=== PATIENT | female | born 1970 | race Caucasian/White ===

== ENCOUNTER 2022-03-29 10:20 | Outpatient (CLI) | payer BC | END 2022-03-29 10:21 | disposition home or self-care (01) | LOC: CSHMAMMO 10:20 | PROVIDERS: ATTEND Family Medicine Sports Medicine | DX: Z12.31 Encounter for screening mammogram for malignant neoplasm of breast (principal) | CPT/HCPCS: 77063; 77067 ==

== ENCOUNTER 2022-06-10 17:45 | Observation (INO) | payer BC ==
[2022-06-10 18:53] LABS: #Basophils 0.1 10x3/uL (0.0-0.2); #Eosinphils 0.1 10x3/uL (0.0-0.5); #Monocytes 0.7 10x3/uL (0.0-1.1); %Basophils 0.7 % (0.0-2.0); %Eosinophils 0.5 % (0.0-6.0); %Lymphocytes 19.7 % (18.0-47.0); %Monocytes 6.6 % (0.0-10.0); %Neutrophils 71.8 % (40.0-75.0); Hemoglobin 14.5 g/dL (12.0-15.5); Mean Corpuscular HGB CONC 35.5 g/dL (32.0-36.0); Mean Corpuscular Volume 87.6 fl (81.6-98.3); Mean Platelet Volume 9.6 fl (7.4-10.4); Platelet Count 229 10x3/uL (150-450); RBC Distribution Width 12.4 % (11.5-14.5); Red Blood Cell (RBC) Count 4.67 10x6/uL (3.90-5.03); White Blood Cell (WBC) Count 11.2 10x3/uL (3.5-10.5)
[2022-06-10 19:03] LABS: ALT (SGPT) 42 U/L (8-55); AST (SGOT) 36 U/L (5-34); Albumin 4.4 g/dL (3.5-5.0); Alkaline Phosphatase 54 U/L (40-110); Anion Gap 16 mmol/L (10-20); BUN (Urea Nitrogen) 13 mg/dL (9.8-20.1); Bilirubin, Total 0.4 mg/dL (0.2-1.2); Calc. Creatinine Clearance 0 mL/min (70-130); Calcium 9.8 mg/dL (7.8-10.44); Carbon Dioxide 21 mmol/L (22-29); Chloride 104 mmol/L (98-107); Estimated GFR 82; Globulin 2.8 g/dL (2.4-3.5); Glucose 107 mg/dL (70-105); Potassium 3.7 mmol/L (3.5-5.1); Protein, Total 7.2 g/dL (6.0-8.3); Sodium 137 mmol/L (136-145)
[2022-06-10] MEDS ORDERED: Aspirin 325 MG TAB ONE (19:19)
[2022-06-10] MEDS ORDERED: Nitroglycerin 2% Ointment 1 INCH/1 GM Packet ONE (19:19)
[2022-06-10] MEDS ORDERED: Acetaminophen 325 MG TAB PO PRN (20:01)
[2022-06-10] MEDS ORDERED: Senokot S 8.6-50 MG TAB PO PRN (20:01)
[2022-06-10] MEDS ORDERED: Calcium Carbonate 500 MG ChewTAB PO PRN (20:01)
[2022-06-10] MEDS ORDERED: Ondansetron PF 4 MG/2 ML Vial IVP PRN (20:01)
[2022-06-10] MEDS ORDERED: Zolpidem Tartrate 5 MG TAB PO PRN (20:01)
[2022-06-10] MEDS ORDERED: Guaifenesin DM 100-10/5 ML UDCUP PO PRN (20:01)
[2022-06-10] MEDS ORDERED: traMADol HCl 50 MG TAB PO PRN (20:02)
[2022-06-10] MEDS ORDERED: Nitroglycerin 0.4 MG TAB (25 Tab Bottle) SL PRN (20:03)
[2022-06-10] MEDS ORDERED: Albuterol Sulfate 2.5 mg/3 ml Neb NEB PRN (20:05)
[2022-06-10] MEDS ORDERED: Potassium Chloride 20 MEQ TAB PO SCH (20:15)
[2022-06-10] MEDS ORDERED: Lisinopril 10 MG TAB PO SCH (20:15)
[2022-06-10] MEDS ORDERED: traMADol HCl 50 MG TAB PO SCH (20:30)
[2022-06-10] MEDS ORDERED: Lidocaine 2% Viscous Solution 10 ML, Aluminum & Magnesium Hydroxide 30 ML SSW SCH (20:30)
[2022-06-10 20:44] VITALS: BMI 29.7
[2022-06-10] MEDS ORDERED: Montelukast Sodium 10 mg Tablet PO SCH (21:00)
[2022-06-11 05:04] LABS: ALT (SGPT) 36 U/L (8-55); AST (SGOT) 36 U/L (5-34); Albumin 3.9 g/dL (3.5-5.0); Alkaline Phosphatase 46 U/L (40-110); Anion Gap 13 mmol/L (10-20); BUN (Urea Nitrogen) 13 mg/dL (9.8-20.1); Bilirubin, Total 0.5 mg/dL (0.2-1.2); Calc. Creatinine Clearance 112 mL/min (70-130); Calcium 9.5 mg/dL (7.8-10.44); Carbon Dioxide 23 mmol/L (22-29); Chloride 107 mmol/L (98-107); Estimated GFR 88; Glucose 99 mg/dL (70-105); Potassium 4.6 mmol/L (3.5-5.1); Protein, Total 6.9 g/dL (6.0-8.3); Sodium 138 mmol/L (136-145)
[2022-06-11] MEDS ORDERED: Lisinopril 10 MG TAB PO SCH (09:00)
[2022-06-11] MEDS ORDERED: Hydrochlorothiazide 25 MG TAB PO SCH (09:00)
[2022-06-11] MEDS ORDERED: Amlodipine 5 MG TAB PO SCH (09:00)
[2022-06-11 11:57] VITALS: BP 138/80; TEMP 98.3
== END 2022-06-11 14:54 | disposition home or self-care (01) ==
LOC: CSHERS 17:45 → CSHTELE 20:33
PROVIDERS: ADMIT Student in an Organized Health Care Education/Training Program; ATTEND Family Medicine
DX: R07.89 Other chest pain (principal); I20.1 Angina pectoris with documented spasm; I16.0 Hypertensive urgency; I10 Essential (primary) hypertension; E78.1 Pure hyperglyceridemia; J45.20 Mild intermittent asthma, uncomplicated; R73.9 Hyperglycemia, unspecified; Z20.822 Contact with and (suspected) exposure to COVID-19; Z79.899 Other long term (current) drug therapy; Z88.5 Allergy status to narcotic agent; Z88.8 Allergy status to other drugs, medicaments and biological substances; Z91.040 Latex allergy status
CPT/HCPCS: 71045; 80053; 83880; 84443; 84484; 85025; 93005; G0378; U0003; U0005

== ENCOUNTER 2024-08-15 10:20 | Outpatient (CLI) | payer BC | END 2024-08-15 10:21 | disposition home or self-care (01) | LOC: CSHMAMMO 10:20 | PROVIDERS: ATTEND Family Medicine Sports Medicine | DX: Z12.31 Encounter for screening mammogram for malignant neoplasm of breast (principal) | CPT/HCPCS: 77063; 77067 ==

== ENCOUNTER 2025-07-09 12:06 | Inpatient (IN) | payer BC ==
[~2025-07-09 12:06] MED LIST: Iopamidol 300 61% 100 ML VIAL FS ONE
[2025-07-09 12:59] LABS: #Basophils 0.07 10x3/uL (0.0-0.2); #Eosinophils 0.12 10x3/uL (0.0-0.5); #Monocytes 1.09 10x3/uL (0.0-1.1); #Neutrophils 15.32 10x3/uL (1.5-8.4); %Basophils 0.4 % (0.0-2.0); %Eosinophils 0.6 % (0.0-6.0); %Lymphocytes 11.2 % (18.0-47.0); %Monocytes 5.8 % (0.0-10.0); %Neutrophils 81.3 % (40.0-75.0); Hematocrit 38.0 % (34.9-44.5); Hemoglobin 12.8 g/dL (12.0-15.5); Mean Corpuscular Hemoglobin 30.2 pg (27.0-33.0); Mean Corpuscular Volume 89.6 fL (81.6-98.3); Platelet Count 184 10x3/uL (150-450); Red Blood Cell (RBC) Count 4.24 10x6/uL (3.90-5.03); White Blood Cell (WBC) Count 18.83 10x3/uL (3.5-10.5)
[2025-07-09 13:27] LABS: Troponin I 0.079 ng/mL (< 0.028)
[2025-07-09 13:28] LABS: ALT (SGPT) 211 U/L (Less than 34); AST (SGOT) 139 U/L (11-34); Albumin 3.5 g/dL (3.1-4.5); Alkaline Phosphatase 75 U/L (40-110); Anion Gap 14 mmol/L (10-20); BUN (Urea Nitrogen) 11 mg/dL (9.8-20.1); Bilirubin, Total 1.1 mg/dL (0.3-1.2); Calc. Creatinine Clearance 0 mL/min (70-130); Calcium 9.3 mg/dL (7.8-10.44); Carbon Dioxide 22 mmol/L (22-29); Chloride 108 mmol/L (98-107); Globulin 2.6 g/dL (2.4-3.5); Glucose 94 mg/dL (70-105); Lipase 34 U/L (8-78); Potassium 3.8 mmol/L (3.5-5.1); Sodium 140 mmol/L (136-145)
[2025-07-09] MEDS ORDERED: diphenhydrAMINE 50 MG/ML VIAL ONE (14:06)
[2025-07-09] MEDS ORDERED: Famotidine/PF 20 mg/2ml Vial ONE (14:06)
[2025-07-09 17:37] LABS: Troponin I 0.057 ng/mL (< 0.028)
[2025-07-09] MEDS ORDERED: Mag-Al 1200 mg/1200 mg/30 ML UDCUP ONE (19:05)
[2025-07-09] MEDS ORDERED: Acetaminophen 500 MG TAB ONE (19:05)
[2025-07-09] MEDS ORDERED: Lidocaine Viscous Sol 2% 15 ml UD Cup ONE (19:05)
[2025-07-09 19:52] LABS: Troponin I 0.057 ng/mL (< 0.028)
[2025-07-09] MEDS ORDERED: Senokot S 8.6-50 MG TAB PO PRN (21:48)
[2025-07-09] MEDS ORDERED: Acetaminophen 325 MG TAB PO PRN (21:48)
[2025-07-09] MEDS ORDERED: Calcium Carbonate 500 MG ChewTAB PO PRN (21:48)
[2025-07-09] MEDS ORDERED: Melatonin 3 MG TAB PO PRN (21:48)
[2025-07-09] MEDS ORDERED: Nitroglycerin 0.4 MG TAB (25 Tab Bottle) SL PRN (21:49)
[2025-07-09] MEDS ORDERED: Albuterol 2.5 MG (3 mL) NEB NEB PRN (21:54)
[2025-07-09 23:08] VITALS: BMI 32.0
[2025-07-10 04:48] LABS: Hematocrit 35.1 % (34.9-44.5); Hemoglobin 12.1 g/dL (12.0-15.5); Mean Corpuscular Hemoglobin 30.3 pg (27.0-33.0); Mean Corpuscular Volume 88.0 fL (81.6-98.3); Platelet Count 192 10x3/uL (150-450); Red Blood Cell (RBC) Count 3.99 10x6/uL (3.90-5.03); White Blood Cell (WBC) Count 15.23 10x3/uL (3.5-10.5)
[2025-07-10 04:53] LABS: ALT (SGPT) 153 U/L (Less than 34); AST (SGOT) 65 U/L (11-34); Albumin 3.2 g/dL (3.1-4.5); Alkaline Phosphatase 64 U/L (40-110); Anion Gap 9 mmol/L (10-20); BUN (Urea Nitrogen) 10 mg/dL (9.8-20.1); Bilirubin, Total 0.4 mg/dL (0.3-1.2); Calc. Creatinine Clearance 119 mL/min (70-130); Calcium 8.8 mg/dL (7.8-10.44); Carbon Dioxide 25 mmol/L (22-29); Cardiac Risk 6.3 (Less than 4.5); Chloride 108 mmol/L (98-107); Cholesterol 151 mg/dl (< 200 Desired); Globulin 3.0 g/dL (2.4-3.5); Glucose 144 mg/dL (70-105); HDL Cholesterol 24 mg/dL (>60 Neg Risk); LDL Cholesterol, Calculated 101 mg/dL; Potassium 4.2 mmol/L (3.5-5.1); Sodium 138 mmol/L (136-145); Triglycerides 129 mg/dL (Less than 150)
[2025-07-10 04:58] LABS: Troponin I 0.030 ng/mL (< 0.028)
[2025-07-10 06:22] LABS: Glucose, Urine (Dipstick) 100 mg/dL (Negative); Leukocyte Negative (Negative); Protein, Urine (Dipstick) Negative (Neg-Trace); Specific Gravity, Urine 1.005 (1.005-1.030)
[2025-07-10 06:22] LABS: MDiff Complete? YES; Platelet Adequacy Comment Appears Adequate; RBC Morphology Within Normal Limits
[2025-07-10 06:28] LABS: RBC/HPF 0-3 HPF (0-3); WBC/HPF None Seen HPF (0-3)
[2025-07-10] MEDS: Pantoprazole 40 MG DR.TAB PO SCH (09:48)
[2025-07-10] MEDS: Enoxaparin 40 MG (0.4 mL) SYRINGE SC SCH (09:48)
[2025-07-10 17:03] LABS: Gamma GT (GGT) 151 U/L (9-36)
[2025-07-10 17:28] LABS: Hep A IgM AB NONREACTIVE (NonReactive); Hep A IgM S/CO 0.21 S/CO (0-0.79); Hep B Core IgM Index 0.08 S/CO (0-0.79); Hep B Surf Ag NONREACTIVE S/CO (NonReactive); Hep C IgG Ab NONREACTIVE S/CO (NonReactive); Hep C Index 0.12 S/CO (0-0.79)
[2025-07-10] MEDS: Ondansetron PF 4 MG/2 ML Vial IVP PRN (18:52)
[2025-07-10] MEDS: Non-Formulary Medication 1 EACH (Magnesium Glycinate [Mag Glycinate] 100 MG Tablet) PO SCH (23:18)
[2025-07-11 05:37] LABS: #Basophils 0.16 10x3/uL (0.0-0.2); #Eosinophils 0.18 10x3/uL (0.0-0.5); #Monocytes 0.58 10x3/uL (0.0-1.1); #Neutrophils 7.98 10x3/uL (1.5-8.4); %Basophils 1.3 % (0.0-2.0); %Eosinophils 1.5 % (0.0-6.0); %Lymphocytes 25.2 % (18.0-47.0); %Monocytes 4.8 % (0.0-10.0); %Neutrophils 65.6 % (40.0-75.0); Hematocrit 36.0 % (34.9-44.5); Hemoglobin 12.3 g/dL (12.0-15.5); Mean Corpuscular Hemoglobin 30.1 pg (27.0-33.0); Mean Corpuscular Volume 88.0 fL (81.6-98.3); Platelet Count 250 10x3/uL (150-450); Red Blood Cell (RBC) Count 4.09 10x6/uL (3.90-5.03); White Blood Cell (WBC) Count 12.16 10x3/uL (3.5-10.5)
[2025-07-11 09:27] LABS: ALT (SGPT) 114 U/L (Less than 34); AST (SGOT) 36 U/L (11-34); Albumin 3.1 g/dL (3.1-4.5); Alkaline Phosphatase 66 U/L (40-110); Anion Gap 12 mmol/L (10-20); BUN (Urea Nitrogen) 12 mg/dL (9.8-20.1); Bilirubin, Total 0.6 mg/dL (0.3-1.2); Calc. Creatinine Clearance 99 mL/min (70-130); Calcium 8.5 mg/dL (7.8-10.44); Carbon Dioxide 23 mmol/L (22-29); Chloride 108 mmol/L (98-107); Globulin 2.5 g/dL (2.4-3.5); Glucose 92 mg/dL (70-105); Potassium 3.8 mmol/L (3.5-5.1); Sodium 139 mmol/L (136-145)
[2025-07-11 11:24] VITALS: BP 152/80; TEMP 98.4
== END 2025-07-11 14:52 | disposition home or self-care (01) | DRG 446 ==
LOC: CSHERS 12:06 → CSHTELE 21:34 → OBSVTOIN 07-10 06:18
PROVIDERS: ADMIT Student in an Organized Health Care Education/Training Program; ATTEND Family Medicine
DX: K81.0 Acute cholecystitis (principal); E78.5 Hyperlipidemia, unspecified; I10 Essential (primary) hypertension; R74.01 Elevation of levels of liver transaminase levels; J45.909 Unspecified asthma, uncomplicated; K21.9 Gastro-esophageal reflux disease without esophagitis; I25.10 Atherosclerotic heart disease of native coronary artery without angina pectoris; Z88.8 Allergy status to other drugs, medicaments and biological substances; Z91.040 Latex allergy status; Z90.49 Acquired absence of other specified parts of digestive tract; Z91.041 Radiographic dye allergy status; Z98.890 Other specified postprocedural states; Z83.3 Family history of diabetes mellitus; Z79.52 Long term (current) use of systemic steroids; Z79.899 Other long term (current) drug therapy; Z79.2 Long term (current) use of antibiotics
CPT/HCPCS: 36415; 71045; 71275; 74177; 76705; 78226; 80053; 80061; 80074; 81001; 82977; 83690; 83880; 84145; 84484; 85025; 85379; 86140; 93005; 94760; 96374; 96375; A9537; J1200; J1308; J1650; J2405; J2543; J2919; J3010; J7120; Q9967